=== PATIENT | female | born 1970 | race Caucasian/White ===

== ENCOUNTER → 2016-11-30 | Outpatient (CLI) | payer BC | END | disposition home or self-care (01) | LOC: LABWHC1 12:19 | PROVIDERS: ATTEND Internal Medicine Endocrinology, Diabetes & Metabolism | DX: E03.8 Other specified hypothyroidism (principal) | CPT/HCPCS: 36415; 84439; 84443 ==

== ENCOUNTER → 2017-02-03 | Outpatient (CLI) | payer BC | END | disposition home or self-care (01) | LOC: LABWHC1 12:32 | PROVIDERS: ATTEND Internal Medicine Endocrinology, Diabetes & Metabolism | DX: E06.3 Autoimmune thyroiditis (principal) | CPT/HCPCS: 36415; 84439; 84443; 84481 ==

== ENCOUNTER → 2017-03-30 | Outpatient (CLI) | payer BC | END | disposition home or self-care (01) | LOC: LABWHC1 12:07 | PROVIDERS: ATTEND Internal Medicine Endocrinology, Diabetes & Metabolism | DX: E03.9 Hypothyroidism, unspecified (principal) | CPT/HCPCS: 36415; 84439; 84443; 84481 ==

== ENCOUNTER → 2017-08-02 | Outpatient (CLI) | payer BC | END | disposition home or self-care (01) | LOC: LABWHC1 12:43 | PROVIDERS: ATTEND Internal Medicine Endocrinology, Diabetes & Metabolism | DX: E03.9 Hypothyroidism, unspecified (principal) | CPT/HCPCS: 36415; 84439; 84443; 84481 ==

== ENCOUNTER → 2017-11-21 | Outpatient (CLI) | payer BC ==
[2017-11-21 13:43] LABS: T4, Free (Free Thyroxine) 0.84 ng/dL (0.78-2.19)
== END | disposition home or self-care (01) ==
LOC: LABWHC1 12:07
PROVIDERS: ATTEND Internal Medicine Endocrinology, Diabetes & Metabolism
DX: N95.1 Menopausal and female climacteric states (principal)
CPT/HCPCS: 36415; 82670; 83001; 83002; 84439; 84443; 84481

== ENCOUNTER → 2017-11-24 | Outpatient (CLI) | payer BC ==
[2017-11-24 12:05] LABS: ALT 29 U/L (9-52); AST 25 U/L (14-36); Albumin 4.7 g/dL (3.5-5.0); Alkaline Phosphatase 62 U/L (38-126); Anion Gap 13 mmol/L; Blood Urea Nitrogen 16 mg/dL (7-17); Calcium 10.5 mg/dL (8.4-10.2); Carbon Dioxide 29 mmol/L (22-30); Chloride 105 mmol/L (98-107); Glucose 72 mg/dL (74-99); Magnesium 2.2 mg/dL (1.6-2.3); Potassium 5.4 mmol/L (3.5-5.1); Sodium 147 mmol/L (137-145); Total Bilirubin 0.5 mg/dL (0.2-1.3); Total Protein 7.1 g/dL (6.3-8.2)
== END | disposition home or self-care (01) ==
LOC: LABWHC1 11:02
PROVIDERS: ATTEND Internal Medicine Endocrinology, Diabetes & Metabolism
DX: E03.9 Hypothyroidism, unspecified (principal); E55.9 Vitamin D deficiency, unspecified
CPT/HCPCS: 36415; 80053; 82306; 83735

== ENCOUNTER → 2017-12-27 | Outpatient (CLI) | payer BC ==
[2017-12-27 11:47] LABS: Ionized Calcium 5.2 mg/dL (4.5-5.3)
[2017-12-27 11:49] LABS: ALT 34 U/L (9-52); AST 26 U/L (14-36); Albumin 4.3 g/dL (3.5-5.0); Alkaline Phosphatase 60 U/L (38-126); Anion Gap 9 mmol/L; Blood Urea Nitrogen 15 mg/dL (7-17); Calcium 9.7 mg/dL (8.4-10.2); Carbon Dioxide 28 mmol/L (22-30); Chloride 102 mmol/L (98-107); Cholesterol 181 mg/dL (<200); Glucose 89 mg/dL (74-99); HDL Cholesterol 85 mg/dL (40-60); LDL Cholesterol,Calculated 84 mg/dL (0-99); Potassium 5.2 mmol/L (3.5-5.1); Sodium 139 mmol/L (137-145); Total Bilirubin 0.6 mg/dL (0.2-1.3); Total Protein 6.8 g/dL (6.3-8.2); Triglycerides 62 mg/dL (<150)
[2017-12-27 17:16] LABS: Parathyroid Hormone Intact 50.7 pg/mL (14.0-72.0)
[2017-12-27 17:21] LABS: ACTH 7.53 pg/mL (0.00-45.99)
== END | disposition home or self-care (01) ==
LOC: LABWHC1 11:18
PROVIDERS: ATTEND Obstetrics & Gynecology
DX: E78.4 Other hyperlipidemia (principal); E03.9 Hypothyroidism, unspecified; M79.1 Myalgia; N95.1 Menopausal and female climacteric states
CPT/HCPCS: 36415; 80053; 80061; 82024; 82330; 82533; 83970

== ENCOUNTER → 2018-01-24 | Outpatient (CLI) | payer BC ==
--- NOTE | 2018-01-26 09:15 | MM ---
Reason for exam: screening (asymptomatic). Last mammogram was performed 1 year and 3 months ago. History: Patient has history of high-risk lesion on a previous biopsy at age 40. Family history of breast cancer in maternal grandmother. High risk MG pre op needle loc LT of the left breast, November 15, 2014. High risk left mammotome panel of the left breast, August 31, 2011. Took hormonal contraceptives for 2 years beginning at age 14. Physical Findings: A clinical breast exam by your physician is recommended on an annual basis and results should be correlated with mammographic findings. MG Screening Mammo w CAD Bilateral CC and MLO view(s) were taken. Prior study comparison: October 22, 2016, bilateral MG diagnostic mammo w CAD GREG. April 22, 2016, left breast MG 3d diag mammo w/cad LT. The breast tissue is heterogeneously dense. This may lower the sensitivity of mammography. No significant changes when compared with prior studies. ASSESSMENT: Benign, BI-RAD 2 RECOMMENDATION: Routine screening mammogram of both breasts in 1 year.
== END | disposition home or self-care (01) ==
LOC: RADMAMWWP 14:39
PROVIDERS: ATTEND Obstetrics & Gynecology
DX: Z12.31 Encounter for screening mammogram for malignant neoplasm of breast (principal)
CPT/HCPCS: 77067

== ENCOUNTER → 2018-01-25 | Outpatient (CLI) | payer BC ==
[2018-01-25 14:18] LABS: ALT 29 U/L (9-52); AST 24 U/L (14-36); Albumin 4.2 g/dL (3.5-5.0); Alkaline Phosphatase 63 U/L (38-126); Anion Gap 12 mmol/L; Blood Urea Nitrogen 23 mg/dL (7-17); Calcium 9.5 mg/dL (8.4-10.2); Carbon Dioxide 25 mmol/L (22-30); Chloride 106 mmol/L (98-107); Glucose 100 mg/dL (74-99); Potassium 4.8 mmol/L (3.5-5.1); Sodium 143 mmol/L (137-145); Total Bilirubin 0.3 mg/dL (0.2-1.3); Total Protein 6.7 g/dL (6.3-8.2)
[2018-01-25 14:34] LABS: T4, Free (Free Thyroxine) 0.84 ng/dL (0.78-2.19)
== END | disposition home or self-care (01) ==
LOC: LABWHC1 13:49
PROVIDERS: ATTEND Internal Medicine Endocrinology, Diabetes & Metabolism
DX: E03.9 Hypothyroidism, unspecified (principal); M79.1 Myalgia
CPT/HCPCS: 36415; 80053; 84439; 84443; 84481

== ENCOUNTER → 2018-05-08 | Outpatient (CLI) | payer BC ==
[2018-05-08 15:59] LABS: ALT 31 U/L (9-52); AST 24 U/L (14-36); Albumin 4.3 g/dL (3.5-5.0); Alkaline Phosphatase 57 U/L (38-126); Anion Gap 7 mmol/L; Blood Urea Nitrogen 17 mg/dL (7-17); Calcium 9.5 mg/dL (8.4-10.2); Carbon Dioxide 26 mmol/L (22-30); Chloride 105 mmol/L (98-107); Glucose 111 mg/dL (74-99); Magnesium 2.1 mg/dL (1.6-2.3); Potassium 4.9 mmol/L (3.5-5.1); Sodium 138 mmol/L (137-145); Total Bilirubin 0.2 mg/dL (0.2-1.3); Total Protein 6.4 g/dL (6.3-8.2)
[2018-05-08 16:14] LABS: T4, Free (Free Thyroxine) 0.66 ng/dL (0.78-2.19)
== END | disposition home or self-care (01) ==
LOC: LABWHC1 14:57
PROVIDERS: ATTEND Internal Medicine Endocrinology, Diabetes & Metabolism
DX: E03.9 Hypothyroidism, unspecified (principal); E55.9 Vitamin D deficiency, unspecified
CPT/HCPCS: 36415; 80053; 82306; 83735; 84439; 84443; 84481

== ENCOUNTER → 2018-09-04 | Outpatient (CLI) | payer BC ==
[2018-09-04 19:10] LABS: Albumin 4.4 g/dL (3.80-4.90); Albumin/Globulin Ratio 2.75 (1.20-2.10); Anion Gap 4.7 mmol/L (4.00-12.00); Calcium 9.2 mg/dL (8.7-10.3); Carbon Dioxide 27.3 mmol/L (21.6-31.8); Globulin 1.6 g/dL (2.1-3.7); Magnesium 2.3 mg/dL (1.5-2.4); Potassium 5.2 mmol/L (3.5-5.5); Total Bilirubin 0.5 mg/dL (0.3-1.2)
== END | disposition home or self-care (01) ==
LOC: LABWHC1 12:58
PROVIDERS: ATTEND Internal Medicine Endocrinology, Diabetes & Metabolism
DX: E03.9 Hypothyroidism, unspecified (principal); E55.9 Vitamin D deficiency, unspecified
CPT/HCPCS: 36415; 80053; 82306; 83735; 84439; 84443; 84481

== ENCOUNTER → 2018-12-11 | Outpatient (CLI) | payer BC | LOC: LABWHC1 12:01 | PROVIDERS: ATTEND Internal Medicine Endocrinology, Diabetes & Metabolism | DX: E03.9 Hypothyroidism, unspecified (principal) | CPT/HCPCS: 36415; 84439; 84443; 84481 ==

== ENCOUNTER → 2019-02-12 | Outpatient (CLI) | payer BC ==
[2019-02-12 20:49] LABS: T4, Free (Free Thyroxine) 0.7 ng/dL (0.80-1.80)
== END ==
LOC: LABWHC1 12:44
PROVIDERS: ATTEND Internal Medicine Endocrinology, Diabetes & Metabolism
DX: E03.9 Hypothyroidism, unspecified (principal); N95.1 Menopausal and female climacteric states
CPT/HCPCS: 36415; 84439; 84443; 84481

== ENCOUNTER → 2019-03-05 | Outpatient (CLI) | payer BC | END | disposition home or self-care (01) | LOC: LABWHC1 08:23 | PROVIDERS: ATTEND Internal Medicine Endocrinology, Diabetes & Metabolism | DX: E03.9 Hypothyroidism, unspecified (principal); N95.1 Menopausal and female climacteric states; R53.83 Other fatigue | CPT/HCPCS: 36415; 82024; 82533 ==

== ENCOUNTER → 2019-03-06 | Outpatient (CLI) | payer BC ==
--- NOTE | 2019-03-07 08:56 | MM ---
Reason for exam: screening (asymptomatic). Last mammogram was performed 1 year and 1 month ago. History: Patient has history of high-risk lesion on a previous biopsy at age 40. Family history of breast cancer in maternal grandmother. High risk MG pre op needle loc LT of the left breast, November 15, 2014. High risk left mammotome panel of the left breast, August 31, 2011. Took hormonal contraceptives for 2 years beginning at age 14. Physical Findings: A clinical breast exam by your physician is recommended on an annual basis and results should be correlated with mammographic findings. MG Screening Mammo w CAD Bilateral CC and MLO view(s) were taken. Prior study comparison: January 24, 2018, bilateral MG screening mammo w CAD. October 22, 2016, bilateral MG diagnostic mammo w CAD GREG. The breast tissue is heterogeneously dense. This may lower the sensitivity of mammography. Left upper outer quadrant middle depth focal asymmetry. ASSESSMENT: Incomplete: need additional imaging evaluation, BI-RAD 0 RECOMMENDATION: Special view mammogram of the left breast. If lesion persists on supplemental views, image directed ultrasound is recommended. [facility] will attempt to contact patient to return for supplemental views and ultrasound if indicated.
== END | disposition home or self-care (01) ==
LOC: RADMAMWWP 11:16
PROVIDERS: ATTEND Obstetrics & Gynecology
DX: Z12.31 Encounter for screening mammogram for malignant neoplasm of breast (principal); Z80.3 Family history of malignant neoplasm of breast
CPT/HCPCS: 77067

== ENCOUNTER → 2019-03-12 | Outpatient (CLI) | payer BC ==
--- NOTE | 2019-03-13 11:31 | MM ---
Reason for exam: additional evaluation requested from abnormal screening. Last mammogram was performed less than 1 month ago. History: Patient has history of high-risk lesion on a previous biopsy at age 40. Family history of breast cancer in maternal grandmother. High risk MG pre op needle loc LT of the left breast, November 15, 2014. High risk left mammotome panel of the left breast, August 31, 2011. Took hormonal contraceptives for 2 years beginning at age 14. Physical Findings: Nurse did not find any significant physical abnormalities on exam. MG 3D Work Up W/Cad LT CC and MLO view(s) were taken of the left breast. Prior study comparison: March 06, 2019, bilateral MG screening mammo w CAD. January 24, 2018, bilateral MG screening mammo w CAD. Finding: Architectural distortion in the upper outer quadrant of the left breast. These results were verbally communicated with the patient and result sheet given to the patient on 03/12/19. ASSESSMENT: Incomplete: need additional imaging evaluation, BI-RAD 0 RECOMMENDATION: Breast MRI of the left breast.
--- NOTE | 2019-03-13 11:34 | USB ---
Reason for exam: additional evaluation requested from abnormal screening. History: Patient has history of high-risk lesion on a previous biopsy at age 40. Family history of breast cancer in maternal grandmother. High risk MG pre op needle loc LT of the left breast, November 15, 2014. High risk left mammotome panel of the left breast, August 31, 2011. Took hormonal contraceptives for 2 years beginning at age 14. US Breast Workup Limited LT Left limited breast ultrasound including focal area of concern, retroareolar and axilla demonstrates a 0.6 x 0.2 x 0.4cm oval, hypoechoic lesion at 3 o'clock. These results were verbally communicated with the patient and result sheet given to the patient on 03/12/19. ASSESSMENT: Incomplete: need additional imaging evaluation, BI-RAD 0 RECOMMENDATION: Breast MRI of the left breast.
== END | disposition home or self-care (01) ==
LOC: RADMAMWWP 13:42
PROVIDERS: ATTEND Obstetrics & Gynecology
DX: R92.8 Other abnormal and inconclusive findings on diagnostic imaging of breast (principal)
CPT/HCPCS: 77061; 77065

== ENCOUNTER → 2019-04-02 | Outpatient (CLI) | payer BC | END | disposition home or self-care (01) | LOC: LABWHC1 13:09 | PROVIDERS: ATTEND Internal Medicine Endocrinology, Diabetes & Metabolism | DX: E03.9 Hypothyroidism, unspecified (principal); N95.1 Menopausal and female climacteric states | CPT/HCPCS: 36415; 84439; 84443; 84481 ==

== ENCOUNTER → 2019-04-04 | Outpatient (CLI) | payer BC ==
--- NOTE | 2019-04-05 09:04 | BMR ---
EXAMINATION TYPE: MR breast BILAT wo/w con DATE OF EXAM: 04/04/2019 COMPARISON: Bilateral breast mammogram March 06, 2019 BI-RADS 0 and older mammograms. Diagnostic left b reast mammogram March 12, 2019 BI-RADS 0. Diagnostic left breast ultrasound 06/12/2019 BI-RADS 0 HISTORY: Abnormal mammogram. History of left breast high risk excisional biopsy in 2015 with atypical lobular hyperplasia. CONTRAST: Multiplanar, multisequence images of the breasts were acquired utilizing 7 mL intravenous Gadavist ga dolinium contrast. TECHNIQUE: A series of fat and water weighted images in the long and short axis views of both breasts are obtained in conjunction with dynamic contrast MRI with subtraction technique. Three-dimensional and additional postprocessing imaging is created on independent workstation and [facility]. FINDINGS: Heterogeneously dense fibroglandular tissue is redemonstrated throughout both breasts. Ther e are few small simple appearing thin-walled cysts scattered throughout fibroglandular tissue identif ied bilaterally. Dynamic postcontrast images show mild to moderate symmetrical annular enhancement in both breasts. Slight small nodularity is present bilaterally which shows gradual enhancement. T1-gloria ghted images show no fat containing masses. Delayed dynamic postcontrast images show no suspicious in tramammary adenopathy. With regards to the right breast there is no suspicious enhancing masses or pathologic enhancement. B enign-appearing right axillary lymph nodes are seen. The chest wall is intact. No suspicious skin thi ckening is noted. With regards to the left breast no pathologic enhancement or suspicious enhancing masses are identifi ed with particular attention to the upper outer quadrant at area of mammogram concern. Small focus in the posterior central glandular tissue shows gradual type enhancement with similar focus seen anteri or lateral aspect just above the nipple. No suspicious skin thickening is seen. The chest wall is int act. Benign-appearing left axillary lymph nodes are identified. The chest wall is intact. IMPRESSION: No MRI evidence for invasive malignancy in either breast. BI-RADS 2 benign findings right breast. BI-RADS 2 benign findings left breast. Recommendation: Patient is due for bilateral breast mammogram February 2020 to be back on annual schedule.
== END ==
LOC: RADMRIMAIN 12:13
PROVIDERS: ATTEND Surgery
DX: R92.8 Other abnormal and inconclusive findings on diagnostic imaging of breast (principal)
CPT/HCPCS: 77049; C8937; A9585

== ENCOUNTER → 2019-07-17 | Outpatient (CLI) | payer BC ==
[2019-07-17 17:43] LABS: Follicle Stimulating Hormone 67.2 mIU/mL
[2019-07-17 22:14] LABS: ACTH 7.54 pg/mL (0.00-45.99)
== END | disposition home or self-care (01) ==
LOC: LABWHC1 10:20
PROVIDERS: ATTEND Internal Medicine Endocrinology, Diabetes & Metabolism
DX: E27.40 Unspecified adrenocortical insufficiency (principal); E03.8 Other specified hypothyroidism
CPT/HCPCS: 36415; 82024; 82533; 83001; 84146; 84439; 84443; 84480

== ENCOUNTER → 2019-10-23 | Outpatient (CLI) | payer BC | END | disposition home or self-care (01) | LOC: LABWHC1 11:01 | PROVIDERS: ATTEND Internal Medicine Endocrinology, Diabetes & Metabolism | DX: E03.8 Other specified hypothyroidism (principal) | CPT/HCPCS: 36415; 84439; 84443; 84480 ==

== ENCOUNTER → 2020-05-05 | Outpatient (CLI) | payer BC ==
--- NOTE | 2020-05-06 07:16 | MM ---
Reason for exam: screening (asymptomatic). Last mammogram was performed 1 year and 2 months ago. History: Patient has history of high-risk lesion on a previous biopsy at age 40. Family history of breast cancer in maternal grandmother at age 50. High risk MG pre op needle loc LT of the left breast, November 15, 2014. High risk left mammotome panel of the left breast, August 31, 2011. Took hormonal contraceptives for 2 years beginning at age 14. Physical Findings: A clinical breast exam by your physician is recommended on an annual basis and results should be correlated with mammographic findings. MG 3D Screening Mammo W/Cad Bilateral CC and MLO view(s) were taken. Prior study comparison: March 12, 2019, left breast MG 3d work up w/cad LT. March 06, 2019, bilateral MG screening mammo w CAD. The breast tissue is heterogeneously dense. This may lower the sensitivity of mammography. There is no discrete abnormality. No significant changes when compared with prior studies. ASSESSMENT: Negative, BI-RAD 1 RECOMMENDATION: Routine screening mammogram of both breasts in 1 year.
== END | disposition home or self-care (01) ==
LOC: RADMAMWWP 14:10
PROVIDERS: ATTEND Family Medicine
DX: Z12.39 Encounter for other screening for malignant neoplasm of breast (principal)
CPT/HCPCS: 77063; 77067

== ENCOUNTER → 2020-07-18 | Outpatient (CLI) | payer BC | END | disposition home or self-care (01) | LOC: LABWHC1 12:16 | PROVIDERS: ATTEND Internal Medicine Endocrinology, Diabetes & Metabolism | DX: E03.8 Other specified hypothyroidism (principal) | CPT/HCPCS: 36415; 84443 ==

== ENCOUNTER → 2020-10-06 | Outpatient (CLI) | payer BC ==
[2020-10-07 03:42] LABS: Prolactin 4.9 ng/mL (2.8-29.2)
[2020-10-08 05:57] LABS: ACTH 8.47 pg/mL (0.00-45.99)
== END | disposition home or self-care (01) ==
LOC: LABWHC1 12:32
PROVIDERS: ATTEND Internal Medicine Endocrinology, Diabetes & Metabolism
DX: E03.8 Other specified hypothyroidism (principal); R53.83 Other fatigue
CPT/HCPCS: 36415; 82024; 82306; 82533; 82607; 84146; 84439; 84443; 84480

== ENCOUNTER → 2020-11-19 | Outpatient (CLI) | payer BC | END | disposition home or self-care (01) | LOC: LABWHC1 11:57 | PROVIDERS: ATTEND Internal Medicine Endocrinology, Diabetes & Metabolism | DX: E03.8 Other specified hypothyroidism (principal) | CPT/HCPCS: 36415; 84443 ==

== ENCOUNTER → 2020-11-27 | Outpatient (CLI) | payer BC ==
[2020-11-27 19:12] LABS: HCT 41.4 % (37.2-46.3); HGB 13.5 g/dL (12.0-15.0); MCH 28.5 pg (27.0-32.0); MCHC 32.6 g/dL (32.0-37.0); MCV 87.3 fL (80.0-97.0); Platelet Count 206 X 10*3/uL (140-440); RBC 4.74 X 10*6/uL (4.10-5.20); WBC 4.67 X 10*3/uL (4.50-10.00)
[2020-11-27 23:19] LABS: Albumin 4.7 g/dL (3.80-4.90); Albumin/Globulin Ratio 2.94 (1.60-3.17); Calcium 9.4 mg/dL (8.7-10.3); Globulin 1.6 g/dL (1.6-3.3); Non-African American GFR(CKD) 64.7 (60.0-200.0); Potassium 5.1 mmol/L (3.5-5.5); Total Bilirubin 0.3 mg/dL (0.3-1.2); Total Protein 6.3 g/dL (6.2-8.2)
[2020-11-27 23:28] LABS: Prolactin 5.2 ng/mL (2.8-29.2)
[2020-11-27 23:36] LABS: Follicle Stimulating Hormone 109.5 mIU/mL
== END | disposition home or self-care (01) ==
LOC: LABWHC1 12:20
PROVIDERS: ATTEND Internal Medicine Endocrinology, Diabetes & Metabolism
DX: R53.83 Other fatigue (principal)
CPT/HCPCS: 36415; 80053; 82024; 82533; 83001; 84146; 85027

== ENCOUNTER 2021-02-12 10:01 | Day surgery (SDC) | payer BC ==
[2021-02-09 15:45] VITALS: BMI 27.3
[~2021-02-12 10:01] MED LIST: LACTATED RINGERS 1,000 ML IV SCH
[2021-02-12 10:27] VITALS: RESP 16; TEMP 97.3
[2021-02-12] MEDS ORDERED: LIDOCAINE 1% (10MG/ML) FOR IV START INTRADERMA ONE (10:31)
[2021-02-12] MEDS ORDERED: PROPOFOL 10 MG/ML 20 ML VIAL IV ONE (11:36)
[2021-02-12] MEDS ORDERED: ONDANSETRON 4 MG/2 ML VIAL ONE (11:36)
--- NOTE | 2021-02-12 12:31 | P.PCN ---
Date of Procedure: 02/12/21 Description of Procedure: Brief history: Patient is a pleasant 50-year-old female presents for outpatient EGD and colonoscopy for evaluation of GERD and heartburn and screening for malignant neoplasm colon. She reports frequent symptoms of heartburn. She treats this with [id number] Tums. She reports worsening symptoms with certain foods such as pizza. No family history of colon cancer or prior colonoscopy reported. Procedure performed: Esophagogastroduodenoscopy with biopsy Colonoscopy with polypectomy Estimated blood loss: Minimal. Preoperative diagnosis: GERD, heartburn, screening for malignant neoplasm of the colon Anesthesia: MAC Procedure: After informed consent was obtained from the patient was brought into the endoscopy unit and IV sedation was administered by anesthesia under continuous monitoring. Initially upper endoscopy was done. The Olympus GF 190 video endoscope was inserted into the mouth and esophagus intubated without any difficulty and was gradually advanced into the stomach and duodenum and carefully examined. The bulb and second part of the duodenum appeared normal, with biopsies taken. The scope was then withdrawn into the stomach adequately insufflated with air and upon careful examination the antrum and body, cardia and fundus appeared normal, with biopsies of the antrum and body taken. The scope was then withdrawn into the esophagus. The GE junction was located at 38 cm to the incisors. It appeared regular however there was some erythema in the distal esophagus consistent with LA grade a distal esophagitis with lower esophageal biopsies taken. Rest of the esophagus appeared normal. Patient tolerated the procedure well. At this time the patient continued to remain sedation. Initial digital rectal examination was normal. Olympus CF 190 video colonoscope was then inserted into the rectum and gradually advanced to the cecum without any difficulty. Careful examination was performed as the scope was gradually being withdrawn. The prep was excellent. The cecum, ascending colon, transverse colon, descending colon, sigmoid colon and rectum appeared normal. The terminal ileum appeared normal. A diminutive 1 mm ileocecal valve polyp was removed with cold forcep polypectomy. A 5 mm sigmoid polyp was removed with cold snare polypectomy. Retroflexion was performed in the rectum and no lesions were noted, with internal hemorrhoids noted. Patient tolerated the procedure well. Impression: 1. LA grade a distal esophagitis. Biopsies of the duodenum, antrum and body and lower esophagus. 2. Diminutive ileocecal valve polyp removed with cold forcep polypectomy. Sessile sigmoid polyp removed with cold snare polypectomy. Internal hemorrhoids. Recommendations: Findings of this examination were discussed with the patient as well as her . Okay to resume diet. Okay to resume medication. Await pathology from biopsies and polypectomy. Since discussion with the patient and recommended a trial of [id number] Prilosec daily for treatment of heartburn. Recommend repeat colonoscopy in 7 years for colon polyps pending pathology from polypectomy.
[2021-02-12 12:49] VITALS: BP 118/61; PULSE 55
== END 2021-02-12 13:06 | disposition home or self-care (01) ==
LOC: ORWHC2ENDO 10:01
PROVIDERS: ATTEND Internal Medicine
DX: K29.50 Unspecified chronic gastritis without bleeding (principal); K21.00 Gastro-esophageal reflux disease with esophagitis, without bleeding; Z12.11 Encounter for screening for malignant neoplasm of colon; D12.0 Benign neoplasm of cecum; D12.5 Benign neoplasm of sigmoid colon; K64.8 Other hemorrhoids; Z88.5 Allergy status to narcotic agent; Z79.899 Other long term (current) drug therapy
CPT/HCPCS: 88305; 45380; 45385; 43239; J2405; J2704

== ENCOUNTER → 2021-02-23 | Outpatient (CLI) | payer BC ==
[2021-02-23 18:49] LABS: HCT 42.1 % (37.2-46.3); HGB 13.6 g/dL (12.0-15.0); MCH 27.9 pg (27.0-32.0); MCHC 32.3 g/dL (32.0-37.0); MCV 86.3 fL (80.0-97.0); Mean Platelet Volume 10.1 fL (9.5-12.2); Platelet Count 219 X 10*3/uL (140-440); RBC 4.88 X 10*6/uL (4.10-5.20); RDW 12.6 % (11.5-14.5); WBC 4.49 X 10*3/uL (4.50-10.00)
[2021-02-23 20:15] LABS: African American GFR (CKD) 85.2 (60.0-200.0); Albumin 4.6 g/dL (3.80-4.90); Albumin/Globulin Ratio 2.19 (1.60-3.17); Anion Gap 7.7 mmol/L (4.00-12.00); BUN/Creat Ratio 16.67 Ratio (12.00-20.00); Calcium 9.5 mg/dL (8.7-10.3); Carbon Dioxide 28.3 mmol/L (21.6-31.8); Globulin 2.1 g/dL (1.6-3.3); Non-African American GFR(CKD) 73.5 (60.0-200.0); Potassium 4.5 mmol/L (3.5-5.5); Total Bilirubin 0.4 mg/dL (0.3-1.2); Total Protein 6.7 g/dL (6.2-8.2)
[2021-02-23 20:25] LABS: Follicle Stimulating Hormone 93.4 mIU/mL; Prolactin 5.5 ng/mL (2.8-29.2)
== END | disposition home or self-care (01) ==
LOC: LABWHC1 13:51
PROVIDERS: ATTEND Internal Medicine Endocrinology, Diabetes & Metabolism
DX: E03.8 Other specified hypothyroidism (principal); R53.83 Other fatigue
CPT/HCPCS: 36415; 80053; 82024; 82533; 83001; 84146; 84443; 85027

== ENCOUNTER → 2021-05-04 | Outpatient (CLI) | payer BC ==
--- NOTE | 2021-05-04 12:06 | US ---
EXAMINATION TYPE: US abdomen complete DATE OF EXAM: 05/04/2021 COMPARISON: NONE CLINICAL HISTORY: R14.0 Abdominal distention (gaseous). Pt states heart burn EXAM MEASUREMENTS: Liver Length: 14.6 cm Gallbladder Wall: 0.2 cm CBD: 1.0 cm Spleen: 10.5 cm Right Kidney: 9.2 x 3.4 x 4.2 cm Left Kidney: 9.7 x 4.6 x 3.8 cm Pancreas: wnl, tail obscured by overlying bowel gas Liver: wnl Gallbladder: wnl Evidence for sonographic Ash's sign: No CBD: Dilated Spleen: wnl Right Kidney: wnl, lower pole gassed out Left Kidney: wnl, lower pole gassed out Upper IVC: wnl Abd Aorta: wnl The liver is homogenous. The intrahepatic portion of the IVC and proximal abdominal aorta are within normal limits. There is no evidence of cholelithiasis. Common bile duct is unremarkable. The visu alized portions of the pancreas are homogenous. The spleen is unremarkable. Kidneys are symmetric a nd free of hydronephrosis. No renal lesions are seen. IMPRESSION: Common bile duct is enlarged measuring up to 1.0 cm. Clinical correlation is recommended. MRCP could be obtained if clinically warranted.
== END | disposition home or self-care (01) ==
LOC: RADUSWWP 07:16
PROVIDERS: ATTEND Family Medicine
DX: K83.8 Other specified diseases of biliary tract (principal); R14.0 Abdominal distension (gaseous)
CPT/HCPCS: 76700

== ENCOUNTER → 2021-06-01 | Outpatient (CLI) | payer BC ==
--- NOTE | 2021-06-03 10:01 | MM ---
Reason for exam: screening (asymptomatic). Last mammogram was performed 1 year and 1 month ago. History: Patient has history of high-risk lesion on a previous biopsy at age 40. Family history of breast cancer in maternal grandmother at age 50. High risk MG pre op needle loc LT of the left breast, November 15, 2014. High risk left mammotome panel of the left breast, August 31, 2011. Took hormonal contraceptives for 2 years beginning at age 14. Physical Findings: A clinical breast exam by your physician is recommended on an annual basis and results should be correlated with mammographic findings. MG 3D Screening Mammo W/Cad Bilateral CC and MLO view(s) were taken. Prior study comparison: May 05, 2020, bilateral MG 3d screening mammo w/cad. March 06, 2019, bilateral MG screening mammo w CAD. January 24, 2018, bilateral MG screening mammo w CAD. There are scattered fibroglandular densities. There is no discrete abnormality. Stable distortion right MLO view. ASSESSMENT: Benign, BI-RAD 2 RECOMMENDATION: Routine screening mammogram of both breasts in 1 year.
== END | disposition home or self-care (01) ==
LOC: RADMAMWWP 13:52
PROVIDERS: ATTEND Family Medicine
DX: Z12.39 Encounter for other screening for malignant neoplasm of breast (principal); Z80.3 Family history of malignant neoplasm of breast
CPT/HCPCS: 77063; 77067

== ENCOUNTER → 2021-06-23 | Outpatient (CLI) | payer BC ==
--- NOTE | 2021-06-23 15:59 | NM ---
EXAMINATION TYPE: NM hepatobiliary w EF DATE OF EXAM: 06/23/2021 COMPARISON: NONE INDICATION: Epigastric pain TECHNIQUE: After the intravenous administration of 4.0 mCi Tc 99m Mebrofenin hepatobiliary scintigrap hy is performed. Images were obtained immediately post injection. FINDINGS: There is prompt uptake and excretion of radiotracer by the liver. Extrahepatic ducts are identified at 2 minutes. The gallbladder is visualized within 8 minutes. Small bowel activity is noted within 28 minutes. At one hour 8 ounces of oral ensure plus is given to mimic CCK and gallbladder ejection fraction is c alculated at 58 %, which is in the normal range. (Normal >35% and <80%.). IMPRESSION: 1. Normal hepatobiliary scan
== END | disposition home or self-care (01) ==
LOC: RADNMMAIN 12:54
PROVIDERS: ATTEND Internal Medicine Gastroenterology
DX: R10.13 Epigastric pain (principal)
CPT/HCPCS: 78226; A9537

== ENCOUNTER → 2021-07-15 | Outpatient (CLI) | payer BC | END | disposition home or self-care (01) | LOC: LABWHC1 12:39 | PROVIDERS: ATTEND Internal Medicine Endocrinology, Diabetes & Metabolism | DX: E03.8 Other specified hypothyroidism (principal) | CPT/HCPCS: 36415; 84439; 84443; 84480 ==

== ENCOUNTER → 2021-09-25 | Outpatient (CLI) | payer BC ==
[2021-09-25 19:50] LABS: Testosterone 12.7 ng/mL (7.00-45.62)
== END | disposition home or self-care (01) ==
LOC: LABWHC1 10:50
PROVIDERS: ATTEND Internal Medicine Endocrinology, Diabetes & Metabolism
DX: E03.8 Other specified hypothyroidism (principal)
CPT/HCPCS: 36415; 84403; 84439; 84443; 84480

== ENCOUNTER → 2021-11-13 | Outpatient (CLI) | payer BC ==
[2021-11-13 20:14] LABS: Basophils # (A) 0.03 X 10*3/uL (0.00-0.10); Basophils % (A) 0.8 %; Eosinophils # (A) 0.06 X 10*3/uL (0.04-0.35); Eosinophils % (A) 1.5 %; HCT 40.5 % (37.2-46.3); HGB 13.2 g/dL (12.0-15.0); Lymphocytes # (A) 1.56 X 10*3/uL (0.90-5.00); Lymphocytes % (A) 39.4 %; MCH 27.1 pg (27.0-32.0); MCHC 32.6 g/dL (32.0-37.0); MCV 83.2 fL (80.0-97.0); Mean Platelet Volume 10.6 fL (9.5-12.2); Monocytes # (A) 0.29 X 10*3/uL (0.20-1.00); Monocytes % (A) 7.3 %; Neutrophils # (A) 2.01 X 10*3/uL (1.80-7.70); Neutrophils % (A) 50.7 %; Platelet Count 209 X 10*3/uL (140-440); RBC 4.87 X 10*6/uL (4.10-5.20); RDW 12.8 % (11.5-14.5); WBC 3.96 X 10*3/uL (4.50-10.00)
[2021-11-13 20:47] LABS: BUN/Creat Ratio 11.03 Ratio (12.00-20.00); Blood Urea Nitrogen 10.1 mg/dL (9.0-27.0); Carbon Dioxide 23.8 mmol/L (20.0-27.5); Chloride 104 mmol/L (96-109); Chol/HDL Ratio 2.73 Ratio; Glucose 89 mg/dL (70-110); LDL Cholesterol,Calculated 94.5 mg/dL (0.0-131.0); Potassium 4.8 mmol/L (3.5-5.5); Sodium 137 mmol/L (135-145)
[2021-11-13 20:48] LABS: ALT 16 U/L (8-44); AST 19 U/L (13-35); African American GFR (CKD) 82.8 (60.0-200.0); Albumin 4.6 g/dL (3.8-4.9); Albumin/Globulin Ratio 2.34 (1.60-3.17); Alkaline Phosphatase 69 U/L (41-126); Calcium 9.9 mg/dL (8.7-10.3); Non-African American GFR(CKD) 71.5 (60.0-200.0); Total Protein 6.5 g/dL (6.2-8.2)
== END | disposition home or self-care (01) ==
LOC: LABWHC1 11:27
PROVIDERS: ATTEND Internal Medicine Endocrinology, Diabetes & Metabolism
DX: Z00.00 Encounter for general adult medical examination without abnormal findings (principal); E03.9 Hypothyroidism, unspecified; E03.8 Other specified hypothyroidism
CPT/HCPCS: 36415; 80053; 80061; 84439; 84443; 84481; 85025

== ENCOUNTER → 2022-02-02 | Outpatient (CLI) | payer BC ==
[2022-02-03] LABS: T4, Free (Free Thyroxine) 0.84 ng/dL (0.800-1.800)
== END | disposition home or self-care (01) ==
LOC: LABWHC1 15:28
PROVIDERS: ATTEND Internal Medicine Endocrinology, Diabetes & Metabolism
DX: E03.8 Other specified hypothyroidism (principal)
CPT/HCPCS: 36415; 84439; 84443; 84480

== ENCOUNTER → 2022-03-16 | Outpatient (CLI) | payer BC ==
[2022-03-16 23:00] LABS: T4, Free (Free Thyroxine) 0.85 ng/dL (0.800-1.800)
== END | disposition home or self-care (01) ==
LOC: LABWHC1 15:05
PROVIDERS: ATTEND Internal Medicine Endocrinology, Diabetes & Metabolism
DX: E03.8 Other specified hypothyroidism (principal)
CPT/HCPCS: 36415; 84439; 84443; 84480

== ENCOUNTER → 2022-06-29 | Outpatient (CLI) | payer BC ==
[2022-06-30 15:32] LABS: T4, Free (Free Thyroxine) 0.53 ng/dL (0.800-1.800)
== END | disposition home or self-care (01) ==
LOC: LABWHC1 21:37
PROVIDERS: ATTEND Internal Medicine Endocrinology, Diabetes & Metabolism
DX: E03.8 Other specified hypothyroidism (principal)
CPT/HCPCS: 36415; 84439; 84443; 84480

== ENCOUNTER → 2022-07-16 | Outpatient (CLI) | payer BC ==
--- NOTE | 2022-07-19 09:10 | MM ---
Reason for Exam: Screening (asymptomatic). Last mammogram was performed 1 year(s) and 1 month(s) ago. Patient History: Menarche at age 12. First Full-Term at age 27. Hormonal Contraceptives for 2 years from age 14 until age 16. 11/15/2014, High risk Core Biopsy on the left side. 08/31/2011, High risk Core Biopsy on the left side. Maternal grandmother had breast cancer, age 50. Risk Values: Floridalma 5 year model risk: 1.7%. NCI Lifetime model risk: 12.7%. Prior Study Comparison: 03/12/2019 Left Diagnostic Mammogram, [facility]. 05/05/2020 Bilateral Screening Mammogram, [facility]. 06/01/2021 Bilateral Screening Mammogram, [facility]. Tissue Density: The breast tissue is heterogeneously dense. This may lower the sensitivity of mammography. Findings: Analyzed By CAD. There is no suspicious group of microcalcifications or new suspicious mass in either breast. Overall Assessment: Negative, BI-RAD 1 Management: Screening Mammogram of both breasts in 1 year. A clinical breast exam by your physician is recommended on an annual basis and results should be correlated with mammographic findings. Electronically signed and approved by: Joey Foy M.D.
== END | disposition home or self-care (01) ==
LOC: RADMAMWWP 09:28
PROVIDERS: ATTEND Obstetrics & Gynecology
DX: Z12.31 Encounter for screening mammogram for malignant neoplasm of breast (principal); Z80.3 Family history of malignant neoplasm of breast
CPT/HCPCS: 77063; 77067

== ENCOUNTER → 2022-08-31 | Outpatient (CLI) | payer BC ==
[2022-08-31 23:52] LABS: T4, Free (Free Thyroxine) 0.54 ng/dL (0.800-1.800)
== END | disposition home or self-care (01) ==
LOC: LABWHC1 15:37
PROVIDERS: ATTEND Internal Medicine Endocrinology, Diabetes & Metabolism
DX: E03.8 Other specified hypothyroidism (principal)
CPT/HCPCS: 36415; 84439; 84443; 84480

== ENCOUNTER → 2023-02-02 | Outpatient (CLI) | payer BC ==
[2023-02-02 16:08] LABS: T4, Free (Free Thyroxine) 1.19 ng/dL (0.800-1.800)
== END | disposition home or self-care (01) ==
LOC: LABWHC1 11:29
PROVIDERS: ATTEND Internal Medicine Endocrinology, Diabetes & Metabolism
DX: E03.8 Other specified hypothyroidism (principal)
CPT/HCPCS: 36415; 84439; 84443; 84480

== ENCOUNTER → 2023-05-09 | Outpatient (CLI) | payer BC ==
[2023-05-09 22:01] LABS: T4, Free (Free Thyroxine) 1.19 ng/dL (0.80-1.80)
== END | disposition home or self-care (01) ==
LOC: LABWHC1 13:38
PROVIDERS: ATTEND Internal Medicine Endocrinology, Diabetes & Metabolism
DX: E03.8 Other specified hypothyroidism (principal)
CPT/HCPCS: 36415; 84439; 84443; 84480

== ENCOUNTER → 2023-11-09 | Outpatient (CLI) | payer BC ==
[2023-11-10 03:02] LABS: T4, Free (Free Thyroxine) 1.5 ng/dL (0.80-1.80)
== END | disposition home or self-care (01) ==
LOC: LABWHC1 14:32
PROVIDERS: ATTEND Internal Medicine Endocrinology, Diabetes & Metabolism
DX: E03.8 Other specified hypothyroidism (principal)
CPT/HCPCS: 36415; 84439; 84443; 84480

== ENCOUNTER → 2024-05-07 | Outpatient (CLI) | payer BC ==
[2024-05-07 15:51] LABS: ALT 29 U/L (8-44); AST 26 U/L (13-35); Albumin 4.5 g/dL (3.8-4.9); Alkaline Phosphatase 98 U/L (41-126); BUN/Creat Ratio 19.56 Ratio (12.00-20.00); Blood Urea Nitrogen 17.6 mg/dL (9.0-27.0); Calcium 9.9 mg/dL (8.7-10.3); Carbon Dioxide 25.1 mmol/L (21.6-31.8); Chloride 106 mmol/L (96-109); Chol/HDL Ratio 3.37 Ratio; Globulin 1.8 g/dL (1.6-3.3); Glucose 97 mg/dL (70-110); LDL Cholesterol,Calculated 102.3 mg/dL (0.0-131.0); Potassium 4.8 mmol/L (3.5-5.5); Sodium 142 mmol/L (135-145); T4, Free (Free Thyroxine) 1.25 ng/dL (0.80-1.80); Total Bilirubin 0.3 mg/dL (0.3-1.2); Total Protein 6.3 g/dL (6.2-8.2)
[2024-05-07 17:05] LABS: Basophils # (A) 0.05 X 10*3/uL (0.00-0.10); Eosinophils # (A) 0.13 X 10*3/uL (0.04-0.35); Eosinophils % (A) 2.6 %; HCT 42.3 % (37.2-46.3); HGB 13.9 g/dL (12.0-15.0); Lymphocytes # (A) 2.24 X 10*3/uL (0.90-5.00); MCH 28.8 pg (27.0-32.0); MCHC 32.9 g/dL (32.0-37.0); MCV 87.6 FL (80.0-97.0); Mean Platelet Volume 10.3 FL (9.5-12.2); Monocytes # (A) 0.49 X 10*3/uL (0.20-1.00); Monocytes % (A) 9.6 %; NRBC Per 100 WBC 0 X 10*3/uL (0.00-0.01); Neutrophils # (A) 2.17 X 10*3/uL (1.80-7.70); Neutrophils % (A) 42.6 %; Platelet Count 201 X 10*3/uL (140-440); RBC 4.83 X 10*6/uL (4.10-5.20); RDW 12.9 % (11.5-14.5); WBC 5.09 X 10*3/uL (4.50-10.00)
== END | disposition home or self-care (01) ==
LOC: LABWHC1 08:04
PROVIDERS: ATTEND Nurse Practitioner Adult Health
DX: Z00.00 Encounter for general adult medical examination without abnormal findings (principal); Z13.1 Encounter for screening for diabetes mellitus; E03.9 Hypothyroidism, unspecified
CPT/HCPCS: 36415; 80053; 80061; 83036; 84439; 84443; 84481; 85025

== ENCOUNTER → 2024-08-07 | Outpatient (CLI) | payer BC ==
--- NOTE | 2024-08-08 08:48 | MM ---
Reason for Exam: Screening (asymptomatic). Last screening mammogram was performed 12 month(s) ago. Patient History: Menarche at age 12. First Full-Term at age 27. Postmenopausal. Hormonal Contraceptives for 2 years from age 14 until age 16. 11/15/2014, High risk Core Biopsy on the left side. 08/31/2011, High risk Core Biopsy on the left side. Maternal grandmother had breast cancer, age 50. Risk Values: Floridalma 5 year model risk: 1.8%. NCI Lifetime model risk: 12.2%. Prior Study Comparison: 06/01/2021 Bilateral Screening Mammogram, [facility]. 07/16/2022 Bilateral MG 3D screening mammo w/cad, [facility]. 08/05/2023 Bilateral MG 3D screening mammo w/cad, [facility]. Tissue Density: The breasts are heterogeneously dense, which may obscure small masses. Findings: Analyzed By CAD. There is no suspicious group of microcalcifications or architectural distortion. On the exiting CLD and there is a 3 mm well-circumscribed rounded nodule in the outer margin of the right breast likely related to benign tiny lymph node. Overall Assessment: Incomplete: need additional imaging evaluation, BI-RAD 0 Management: Diagnostic Breast Ultrasound of the right breast. . Patient should continue monthly self-breast exams. A clinical breast exam by your physician is recommended on an annual basis. This exam should not preclude additional follow-up of suspicious palpable abnormalities. Note on Floridalma scores and lifetime risk: 1. A Floridalma score greater than 3% is considered moderate risk. If this is the case, consider specialist referral to assess eligibility for a risk reducing agent. 2. If overall lifetime risk for the development of breast cancer is 20% or higher, the patient may qualify for future screening with alternating mammogram and breast MRI. [facility], , 08/08/2024 8:45 AM. Electronically signed and approved by: Juan Grande M.D. Radiologis
== END | disposition home or self-care (01) ==
LOC: RADMAMWWP 13:13
PROVIDERS: ATTEND Family Medicine
CPT/HCPCS: 77063; 77067

== ENCOUNTER → 2024-08-14 | Outpatient (CLI) | payer BC ==
--- NOTE | 2024-08-15 13:45 | USB ---
Reason for Exam: Additional evaluation requested from abnormal screening. Patient History: Menarche at age 12. First Full-Term at age 27. Postmenopausal. Hormonal Contraceptives for 2 years from age 14 until age 16. 11/15/2014, High risk Core Biopsy on the left side. 08/31/2011, High risk Core Biopsy on the left side. Maternal grandmother had breast cancer, age 50. Risk Values: Floridalma 5 year model risk: 1.8%. NCI Lifetime model risk: 12.2%. Technique: Method: Targeted. Prior Study Comparison: 07/16/2022 Bilateral MG 3D screening mammo w/cad, [facility]. 08/05/2023 Bilateral MG 3D screening mammo w/cad, [facility]. 08/07/2024 Bilateral MG 3D screening mammo w/cad, [facility]. Findings: The axilla of the right breast was scanned. 2 normal-appearing lymph nodes are seen within the paranasal measuring 1 cm and 1.1 cm respectively.. Overall Assessment: Benign, BI-RAD 2 Management: Screening Mammogram of both breasts in 1 year. A clinical breast exam by your physician is recommended on an annual basis and results should be correlated with mammographic findings. This exam should not preclude additional follow-up of suspicious palpable abnormalities. Results were given to the patient verbally at the time of exam. [facility], , 08/14/2024 3:11 PM. Electronically signed and approved by: Brian Echeverria M.D. Radiologis
== END | disposition home or self-care (01) ==
LOC: RADUSWWP 14:51
PROVIDERS: ATTEND Family Medicine

== ENCOUNTER → 2025-02-26 | Outpatient (CLI) | payer BC ==
[2025-02-26 15:05] LABS: Basophils # (A) 0.03 X 10*3/uL (0.00-0.10); Basophils % (A) 0.7 %; Eosinophils # (A) 0.08 X 10*3/uL (0.04-0.35); Eosinophils % (A) 1.7 %; HCT 41.3 % (37.2-46.3); HGB 13.7 g/dL (12.0-15.0); Lymphocytes # (A) 1.84 X 10*3/uL (0.90-5.00); MCH 28.4 pg (27.0-32.0); MCHC 33.2 g/dL (32.0-37.0); MCV 85.7 FL (80.0-97.0); Mean Platelet Volume 9.9 FL (9.5-12.2); Monocytes % (A) 6.5 %; NRBC Per 100 WBC 0 X 10*3/uL (0.00-0.01); Neutrophils # (A) 2.34 X 10*3/uL (1.80-7.70); Neutrophils % (A) 50.9 %; Platelet Count 205 X 10*3/uL (140-440); RBC 4.82 X 10*6/uL (4.10-5.20); RDW 13.3 % (11.5-14.5)
[2025-02-26 15:24] LABS: % Iron Saturation 21.87 (12.00-45.00); ALT 21 U/L (8-44); AST 23 U/L (13-35); Albumin 4.6 g/dL (3.8-4.9); Alkaline Phosphatase 73 U/L (41-126); Blood Urea Nitrogen 15.4 mg/dL (9.0-27.0); Calcium 9.7 mg/dL (8.7-10.3); Carbon Dioxide 24.2 mmol/L (21.6-31.8); Chloride 105 mmol/L (96-109); Chol/HDL Ratio 3.08 Ratio; Ferritin 52.7 ng/mL (10.0-291.0); Globulin 2.3 g/dL (1.6-3.3); Glucose 98 mg/dL (70-110); Iron 89 UG/DL (50-170); LDL Cholesterol,Calculated 135.2 mg/dL (0.0-131.0); Potassium 4.8 mmol/L (3.5-5.5); Sodium 141 mmol/L (135-145); T4, Free (Free Thyroxine) 1.37 ng/dL (0.80-1.80); Total Bilirubin 0.3 mg/dL (0.3-1.2); Total Iron Binding Capacity 407 UG/DL (228-460); Total Protein 6.9 g/dL (6.2-8.2)
[2025-02-27 13:42] LABS: Beef IgE <0.10 kU/L (<0.10); Beef IgE Class CLASS 0; Chicken IgE Class CLASS 0; Egg Yolk IgE Class CLASS 0; Pork IgE Class CLASS 0
== END | disposition home or self-care (01) ==
LOC: LABWHC1 10:16
PROVIDERS: ATTEND Nurse Practitioner Adult Health
DX: Z00.00 Encounter for general adult medical examination without abnormal findings (principal); Z13.1 Encounter for screening for diabetes mellitus; E03.9 Hypothyroidism, unspecified; R53.82 Chronic fatigue, unspecified; Z91.018 Allergy to other foods
CPT/HCPCS: 36415; 80053; 80061; 82306; 82607; 82728; 82746; 83036; 83540; 83550; 84439; 84443; 84481; 85025; 86003